=== PATIENT | male | born 1945 | race Asian ===

== ENCOUNTER 2019-07-09 22:39 | Inpatient (IN) | payer MEDICARE ==
[~2019-07-09] VITALS: Ht 172.7 cm; Wt 55.3 kg
[2019-07-09 23:15] LABS: BASOPHILS % (AUTO) 0.4 % (0.0-2.0); EOSINOPHILS % (AUTO) 1.4 % (0.0-6.0); HEMATOCRIT 45 % (39-51); HEMOGLOBIN 14.9 g/dL (13.5-17.5); LYMPHOCYTES # (AUTO) 1.5 /CMM (0.8-4.8); LYMPHOCYTES % (AUTO) 27.3 % (20.0-44.0); MEAN CORPUSCULAR HGB CONC 33 g/dl (31.0-36.0); MEAN CORPUSCULAR VOLUME 92 fL (80-96); MONOCYTES # (AUTO) 0.7 /CMM (0.1-1.30); MONOCYTES % (AUTO) 13.3 % (2.0-12.0); NEUTROPHILS # (AUTO) 3.1 /CMM (1.8-8.9); NEUTROPHILS % (AUTO) 57.6 % (43.0-81.0); PLATELET COUNT (AUTO) 144 /CMM (150-450); RED BLOOD CELL COUNT(AUTO) 4.93 MIL/uL (4.5-6.0); WHITE BLOOD COUNT (AUTO) 5.3 K/uL (4.3-11.0)
[2019-07-09 23:22] LABS: CALCIUM, SERUM 9.4 mg/dL (8.5-10.1); CARBON DIOXIDE 29 mmol/L (21-32); CHLORIDE 103 mmol/L (98-107); CREATININE 0.9 mg/dL (0.6-1.3); GLUCOSE 119 mg/dL (74-106); POTASSIUM 3.5 mmol/L (3.5-5.1); SODIUM SERUM 137 mmol/L (136-145); UREA NITROGEN, BLOOD 16 mg/dL (7-18)
[2019-07-09 23:28] LABS: ACETAMINOPHEN 0 ug/ml (10-30); ALANINE AMINOTRANSFERASE 26 U/L (12-78); ALCOHOL, BLOOD < 3 mg/dL (0-0); ALKALINE PHOSPHATASE 67 U/L (46-116); ASPARTATE AMINOTRANSFERASE 24 U/L (15-37); BILIRUBIN,DIRECT 0.1 mg/dL (0.0-0.2); BILIRUBIN,TOTAL 0.3 mg/dL (0.2-1.0); SALICYLATE 0.5 mg/dL (2.8-20.0); TOTAL PROTEIN, SERUM 7.6 g/dL (6.4-8.2)
[2019-07-09 23:34] LABS: APPEARANCE,URINE Clear (CLEAR); BILIRUBIN,URINE Negative (NEGATIVE); BLOOD, URINE Negative Ery/uL (NEGATIVE); COLOR,URINE Yellow (YELLOW); KETONES,URINE Negative (NEGATIVE); LEUKOCYTE ESTERASE ,URINE Negative (NEGATIVE); NITRITE, URINE Negative (NEGATIVE); PH,URINE 5.5 (5.0-8.0); PROTEIN,URINE Trace mg/dl (NEGATIVE); UGLUCOSE 100 MG/DL mg/dL (NEGATIVE); UROBILINOGEN,URINE 0.2 EU/dL (0.2)
[2019-07-10 00:27] LABS: BACTERIA,URINE Few /HPF (None Seen); SQUAMOUS EPITHELIAL CELL,UR Rare /HPF (None Seen); WBC,URINE 0-2 /HPF (0-3)
[2019-07-10 01:00] VITALS: BP 169/96
[2019-07-10] MEDS ORDERED: CLOP75TA15 PO (01:25)
[2019-07-10] MEDS ORDERED: SITA50TA PO (01:25)
[2019-07-10] MEDS ORDERED: MAG HYDROX/AL HYDROX/SIMETH 30 ML UDC PO PRN (01:30)
[2019-07-10] MEDS ORDERED: MAGNESIUM HYDROXIDE 30 ML UDC PO PRN (01:30)
[2019-07-10] MEDS ORDERED: TEMAZEPAM 7.5 MG CAPSULE PO PRN (01:30)
[2019-07-10] MEDS ORDERED: ACETAMINOPHEN 325 MG TABLET PO PRN (01:30)
[2019-07-10] MEDS ORDERED: LORAZEPAM 0.5 MG TABLET PO PRN (01:30)
[2019-07-10] MEDS ORDERED: BLOOD SUGAR DIAGNOSTIC 1 EACH STRIP IN ONE (01:30)
[2019-07-10 02:50] VITALS: BP 152/85
[2019-07-10 08:00] VITALS: BP 147/91
[2019-07-10] MEDS: LINAGLIPTIN 5 MG TABLET PO SCH (08:45)
[2019-07-10] MEDS: CLOPIDOGREL BISULFATE 75 MG TABLET PO SCH (08:45)
[2019-07-10] MEDS ORDERED: CLONIDINE HCL 0.1 MG TABLET PO PRN (10:30)
[2019-07-10 16:00] VITALS: BP 155/99
[2019-07-10] MEDS ORDERED: ATOR10TA PO (18:55)
[2019-07-10] MEDS ORDERED: BRIM5DRO2 OP (19:00)
[2019-07-10 20:34] VITALS: BP 113/69
[2019-07-11 08:00] VITALS: BP 114/89
[2019-07-11] MEDS: CLOPIDOGREL BISULFATE 75 MG TABLET PO SCH (08:18)
[2019-07-11] MEDS: LINAGLIPTIN 5 MG TABLET PO SCH (08:19)
[2019-07-11] MEDS: ESCITALOPRAM OXALATE (10 MG) 10 MG TABLET PO SCH (08:19)
[2019-07-11 11:16] LABS: CALCIUM, SERUM 9.2 mg/dL (8.5-10.1); CREATININE 0.8 mg/dL (0.6-1.3)
[2019-07-11 11:22] LABS: CHOLESTEROL 167 mg/dL (<200); HDL CHOLESTEROL 66 mg/dL (40-60); LDL 93 mg/dL (0-99); TRIGLYCERIDES 89 mg/dL (30-150)
[2019-07-11 11:27] LABS: BASOPHILS % (AUTO) 0.2 % (0.0-2.0); EOSINOPHILS % (AUTO) 0.9 % (0.0-6.0); HEMATOCRIT 46 % (39-51); HEMOGLOBIN 15.3 g/dL (13.5-17.5); LYMPHOCYTES # (AUTO) 1.3 /CMM (0.8-4.8); LYMPHOCYTES % (AUTO) 28.2 % (20.0-44.0); MEAN CORPUSCULAR HGB CONC 33 g/dl (31.0-36.0); MEAN CORPUSCULAR VOLUME 90 fL (80-96); MONOCYTES # (AUTO) 0.4 /CMM (0.1-1.30); MONOCYTES % (AUTO) 9.4 % (2.0-12.0); NEUTROPHILS # (AUTO) 2.8 /CMM (1.8-8.9); NEUTROPHILS % (AUTO) 61.3 % (43.0-81.0); PLATELET COUNT (AUTO) 130 /CMM (150-450); RED BLOOD CELL COUNT(AUTO) 5.08 MIL/uL (4.5-6.0); WHITE BLOOD COUNT (AUTO) 4.5 K/uL (4.3-11.0)
[2019-07-11] MEDS: Brimonidine Tartrate/Timolol (Combigan Eye Drops) OP SCH ×2 (12:08→16:18)
[2019-07-11] MEDS: ATORVASTATIN 10 MG TABLET PO SCH (12:08)
[2019-07-11 15:21] VITALS: BP 62/32
[2019-07-11 15:22] VITALS: BP 69/43
[2019-07-11] MEDS ORDERED: IV NS 0.9% 1,000 ML BAG IV ONE ×3 (16:00→18:00)
[2019-07-11 16:20] VITALS: BP 58/36
[2019-07-11 20:00] VITALS: BP 95/59
[2019-07-11 20:24] VITALS: BP 95/59
[2019-07-12 08:00] VITALS: BP 115/75
[2019-07-12] MEDS: ESCITALOPRAM OXALATE (10 MG) 10 MG TABLET PO SCH (08:39)
[2019-07-12] MEDS: LINAGLIPTIN 5 MG TABLET PO SCH (08:39)
[2019-07-12] MEDS: CLOPIDOGREL BISULFATE 75 MG TABLET PO SCH (08:39)
[2019-07-12] MEDS: ATORVASTATIN 10 MG TABLET PO SCH (08:39)
[2019-07-12] MEDS: Brimonidine Tartrate/Timolol (Combigan Eye Drops) OP SCH ×2 (08:42→16:16)
[2019-07-12 16:00] VITALS: BP 126/71
[2019-07-12 20:15] VITALS: BP 109/69
[2019-07-13 08:00] VITALS: BP 151/84
[2019-07-13] MEDS: ATORVASTATIN 10 MG TABLET PO SCH (08:20)
[2019-07-13] MEDS: Brimonidine Tartrate/Timolol (Combigan Eye Drops) OP SCH ×2 (08:21→17:26)
[2019-07-13] MEDS: CLOPIDOGREL BISULFATE 75 MG TABLET PO SCH (08:21)
[2019-07-13] MEDS: LINAGLIPTIN 5 MG TABLET PO SCH (08:21)
[2019-07-13] MEDS: ESCITALOPRAM OXALATE (10 MG) 10 MG TABLET PO SCH (08:21)
[2019-07-13 16:00] VITALS: BP 137/83
[2019-07-13 20:45] VITALS: BP 131/86
[2019-07-14 08:00] VITALS: BP 135/79
[2019-07-14] MEDS: ATORVASTATIN 10 MG TABLET PO SCH (08:51)
[2019-07-14] MEDS: Brimonidine Tartrate/Timolol (Combigan Eye Drops) OP SCH ×2 (08:51→16:57)
[2019-07-14] MEDS: CLOPIDOGREL BISULFATE 75 MG TABLET PO SCH (08:51)
[2019-07-14] MEDS: LINAGLIPTIN 5 MG TABLET PO SCH (08:51)
[2019-07-14] MEDS: ESCITALOPRAM OXALATE (10 MG) 10 MG TABLET PO SCH (08:51)
[2019-07-14] MEDS ORDERED: *INSULIN REGULAR(HUMULIN R)HUM 100 UNIT/ML VIAL SQ PRN (10:30)
[2019-07-14] MEDS ORDERED: DEXTROSE 50%-WATER 50 ML DISP.SYRIN IV PRN (10:30)
[2019-07-14] MEDS ORDERED: INSULIN REGULAR, HUMAN 100 UNIT/ML 3 ML VIAL SQ PRN (10:30)
[2019-07-14] MEDS: BLOOD SUGAR DIAGNOSTIC 1 EACH STRIP VI SCH ×3 (12:26→22:00)
[2019-07-14 16:00] VITALS: BP 138/81
[2019-07-14 20:41] VITALS: BP 130/79
[2019-07-15] MEDS: BLOOD SUGAR DIAGNOSTIC 1 EACH STRIP VI SCH ×2 (07:30→12:21)
[2019-07-15 08:00] VITALS: BP 150/88
[2019-07-15] MEDS: LINAGLIPTIN 5 MG TABLET PO SCH (09:04)
[2019-07-15] MEDS: CLOPIDOGREL BISULFATE 75 MG TABLET PO SCH (09:04)
[2019-07-15] MEDS: ESCITALOPRAM OXALATE (10 MG) 10 MG TABLET PO SCH (09:04)
[2019-07-15] MEDS: ATORVASTATIN 10 MG TABLET PO SCH (09:04)
[2019-07-15] MEDS: Brimonidine Tartrate/Timolol (Combigan Eye Drops) OP SCH (09:05)
== END 2019-07-15 12:30 | disposition home or self-care (01) | DRG 885 ==
LOC: ER 22:45 → GPS 07-10 00:04
PROVIDERS: ADMIT Psychiatry & Neurology Psychiatry; ATTEND Internal Medicine
DX: F33.2 Major depressive disorder, recurrent severe without psychotic features (principal); R45.851 Suicidal ideations; F29 Unspecified psychosis not due to a substance or known physiological condition; Z86.73 Personal history of transient ischemic attack (TIA), and cerebral infarction without residual deficits; E11.9 Type 2 diabetes mellitus without complications; E78.5 Hyperlipidemia, unspecified; H40.9 Unspecified glaucoma; I10 Essential (primary) hypertension; Z79.84 Long term (current) use of oral hypoglycemic drugs
CPT/HCPCS: 36415; 80048-TC; 80061-TC; 80076-TC; 80305; 81000-TC; 82962-TC; 85025-TC; 87081-TC; G0480; J1815; J7030; J7040